=== PATIENT | male | born 1960 | race Caucasian/White ===

== ENCOUNTER 2022-08-25 09:30 | Outpatient (CLI) | payer BC | END 2022-08-25 09:31 | disposition home or self-care (01) | LOC: SCSMRI 09:30 | PROVIDERS: ATTEND Family Medicine | DX: M47.22 Other spondylosis with radiculopathy, cervical region (principal); M47.813 Spondylosis without myelopathy or radiculopathy, cervicothoracic region | CPT/HCPCS: 72141 ==